=== PATIENT | male | born 1935 | race Caucasian/White ===

== ENCOUNTER → 2016-09-13 | Outpatient (CLI) | payer MEDICARE, BC ==
[~2016-09-13] MED LIST: ADVIL 200MG TA200 MG PO; ASPIRIN 81M81 MG/TA2 PO; AVODART 0.5MG0.5 MG PO; METFORMIN500 MG PO
== END ==
LOC: COL.RAD 11:08
DX: N21.0 Calculus in bladder (principal); D41.02 Neoplasm of uncertain behavior of left kidney; N40.0 Benign prostatic hyperplasia without lower urinary tract symptoms; R31.0 Gross hematuria; M51.37 Other intervertebral disc degeneration, lumbosacral region
CPT/HCPCS: Q9967

== ENCOUNTER → 2017-12-05 | Outpatient (CLI) | payer MEDICARE, BC | LOC: COL.RAD 07:31 | DX: N28.89 Other specified disorders of kidney and ureter (principal); K57.30 Diverticulosis of large intestine without perforation or abscess without bleeding; M47.814 Spondylosis without myelopathy or radiculopathy, thoracic region ==

== ENCOUNTER 2020-01-01 07:09 | Day surgery (SDC) | payer MEDICARE, BC ==
[~2020-01-01] VITALS: Ht 182.9 cm; Wt 113.9 kg
[2020-01-01 07:36] VITALS: BP 144/88; PULSE 84; TEMP 98.1
[2020-01-01] MEDS ORDERED: GLUCOPHAGE500 MG/TAB PO (07:43)
--- NOTE | 2020-01-01 07:45 | NUR ---
TO RM AT 0715- CALL LIGHT IN REACH JASIEL WILL REEL BLADE BENDER FURNACE TENDER PATIENT
[2020-01-01] MEDS ORDERED: AMOXICILLIN 50500 MG PO (07:53)
[2020-01-01 09:00] VITALS: BP 133/82; PULSE 88; TEMP 97.4
--- NOTE | 2020-01-01 09:00 | NUR ---
TO BAY 3 PER CART FROM ENDOSCOPY. ALERT ORIENTED X3, TALKING TO STAFF. AMBULATED TO RECLINER. TOLERATED WELL. RECEIVED MUFFIN AND JANIE.
[2020-01-01 09:15] VITALS: BP 136/79; PULSE 90
--- NOTE | 2020-01-01 09:15 | NUR ---
ATE 100% AND TOLERATED WELL. RECEIVED CUP OF BLACK COFFEE.
[2020-01-01 09:30] VITALS: BP 130/77; PULSE 73
--- NOTE | 2020-01-01 09:30 | NUR ---
DISCONTINUED IV AND INT- CATHETER INTACT. PATIENT GETTING DRESSED
--- NOTE | 2020-01-01 09:45 | NUR ---
DR SIMENTAL INTO TALK WITH PATIENT.
--- NOTE | 2020-01-01 10:00 | NUR ---
RECEIVED DISCHARGE INSTRUCTIONS AND VERBALIZED UNDERSTANDING.
--- NOTE | 2020-01-01 10:10 | NUR ---
DISCHARGED PER WC BY NURSING STAFF TO PRIVATE CAR IN CARE OF -JASIEL
== END 2020-01-01 10:19 | disposition home or self-care (01) ==
LOC: SDCO 07:09
DX: Z12.11 Encounter for screening for malignant neoplasm of colon (principal); D12.0 Benign neoplasm of cecum; D12.3 Benign neoplasm of transverse colon; K64.0 First degree hemorrhoids; K57.30 Diverticulosis of large intestine without perforation or abscess without bleeding; E11.9 Type 2 diabetes mellitus without complications; G47.33 Obstructive sleep apnea (adult) (pediatric); K44.9 Diaphragmatic hernia without obstruction or gangrene; N40.0 Benign prostatic hyperplasia without lower urinary tract symptoms; N28.89 Other specified disorders of kidney and ureter; Z79.84 Long term (current) use of oral hypoglycemic drugs; Z79.899 Other long term (current) drug therapy; Z88.1 Allergy status to other antibiotic agents; Z88.5 Allergy status to narcotic agent; Z79.82 Long term (current) use of aspirin
CPT/HCPCS: J2704; J7030

== ENCOUNTER 2020-10-24 21:07 | Emergency (ER) | payer MEDICARE, BC ==
[~2020-10-24] VITALS: Ht 180.3 cm; Wt 111.4 kg
[~2020-10-24 21:07] MED LIST changes: +AMOXICILLIN 50500 MG PO; +GLUCOPHAGE500 MG/TAB PO
[2020-10-24 21:51] LABS: BASO % 0.8 % (0.0-2.0); GRAN # 2.9 (1.4-6.5); GRAN % 76.9 % (42.2-75.2); HEMATOCRIT 39.5 % (42.0-52.0); HEMOGLOBIN 13.2 g/dl (13.5-18.0); LYMPH # 0.4 (1.2-3.4); LYMPH % 11.3 % (20.0-51.0); MEAN CELL VOLUME 99 fl (80.0-100.0); MEAN CORPUSCULAR HEMOGLOBIN 33 pg (27.0-31.0); MEAN CORPUSCULAR HGB CONC 33 g/dl (33.0-37.0); MEAN PLATELET VOLUME 9.4 fl (7.4-10.4); MONO # 0.4 (0.1-0.6); MONO % 10.5 % (1.7-9.3); PLATELET COUNT 117 K/mm3 (130-400); RED BLOOD COUNT 3.99 M/mm3 (4.20-5.60); REDCELL DISTRIBUTION WIDTH-CV 12.7 % (11.5-14.5)
[2020-10-24 22:04] LABS: ALANINE AMINOTRANSFERASE 20 U/L (4-49); ALBUMIN 3.7 gm/dL (3.5-5.0); ALKALINE PHOSPHATASE 45 U/L (50-136); ANION GAP 6 mmol/L (7-16); AST,SGOT 30 U/L (15-37); BILIRUBIN,TOTAL 0.7 mg/dL (0.0-1.0); BLOOD UREA NITROGEN 21 mg/dL (9-20); C-REACTIVE PROTEIN 2.1 mg/dL (0.0-0.9); CALCIUM 8.7 mg/dL (8.4-10.2); CARBON DIOXIDE 26 mmol/L (22-30); CHLORIDE 108 mmol/L (98-107); CREATININE, serum 1.17 (0.66-1.25); GLUCOSE 128 mg/dL (74-106); LIPASE 62 U/L (23-300); SODIUM 141 mmol/L (137-145); TOTAL PROTEIN 6.7 gm/dL (6.4-8.2)
[2020-10-24 22:18] LABS: TROPONIN-I < 0.012 ng/mL (0.000-0.035)
[2020-10-24 22:35] LABS: COLLECTION METHOD CLEAN CATCH
[2020-10-24 22:40] LABS: MUCOUS Present /lpf; PH 5 (5-8); SQUAMOUS EPITHELIAL 0-2 /hpf; URINE APPEARANCE Hazy; URINE BACTERIA Rare /hpf; URINE BILIRUBIN Negative (NEGATIVE); URINE BLOOD 1+ (NEGATIVE); URINE COLOR Yellow; URINE GLUCOSE Negative (NEGATIVE); URINE KETONE Negative (NEGATIVE); URINE LEUKOCYTE ESTERASE 3+ (NEGATIVE); URINE NITRATE Negative (NEGATIVE); URINE PROTEIN(semi-quant) 1+ (NEGATIVE); URINE UROBILINOGEN Negative (NEGATIVE)
[2020-10-24] MEDS ORDERED: CEFTIN500 MG PO (23:03)
[2020-10-24 23:20] VITALS: TEMP 98.3
[2020-10-24 23:50] VITALS: BP 116/68; PULSE 70
== END 2020-10-24 23:55 | disposition home or self-care (01) ==
LOC: COL.ER 21:07
PROVIDERS: Emergency Medicine
DX: G97.82 Other postprocedural complications and disorders of nervous system (principal); R50.9 Fever, unspecified; E11.9 Type 2 diabetes mellitus without complications; N40.0 Benign prostatic hyperplasia without lower urinary tract symptoms; G40.909 Epilepsy, unspecified, not intractable, without status epilepticus; Z88.1 Allergy status to other antibiotic agents; Z88.6 Allergy status to analgesic agent; Z79.82 Long term (current) use of aspirin; Z79.84 Long term (current) use of oral hypoglycemic drugs
CPT/HCPCS: J0696; J7030

== ENCOUNTER 2020-12-24 19:55 | Emergency (ER) | payer MEDICARE, BC ==
[~2020-12-24] VITALS: Ht 180.3 cm; Wt 111.4 kg
[~2020-12-24 19:55] MED LIST changes: +CEFTIN500 MG PO
[2020-12-24 20:04] VITALS: TEMP 98.4
[2020-12-24 23:00] VITALS: BP 147/86; PULSE 64
== END 2020-12-24 23:03 | disposition home or self-care (01) ==
LOC: COL.ER 19:55
DX: I62.03 Nontraumatic chronic subdural hemorrhage (principal); Z87.891 Personal history of nicotine dependence

== ENCOUNTER 2021-11-12 17:52 | Emergency (ER) | payer MEDICARE, BC ==
[~2021-11-12] VITALS: Ht 180.3 cm; Wt 111.4 kg
[2021-11-12 18:01] VITALS: TEMP 97.6
[2021-11-12 19:27] VITALS: BP 145/90; PULSE 51
== END 2021-11-12 19:28 | disposition home or self-care (01) ==
LOC: COL.ER 17:52
DX: S09.90XA Unspecified injury of head, initial encounter (principal); I62.03 Nontraumatic chronic subdural hemorrhage; W08.XXXA Fall from other furniture, initial encounter